=== PATIENT | female | born 1980 | race Two or more races ===

== ENCOUNTER → 2024-08-13 | Outpatient (CLI) | payer BC, MEDICAID, SELFPAY ==
--- NOTE | 2024-08-13 09:25 | XR_ITS ---
Examination: Lumbar spine, 5 views Technique: Lumbar spine AP, lateral, coned lateral lower lumbar spine, bilateral obliques 5 views Exam date and time: August 13, 2024 at 0928 hrs. Indications: Low back pain beginning 3 weeks ago Findings: Adequate alignment lumbar vertebral bodies on the lateral view Mild diffuse lumbar disc narrowing Mild lumbar spondylosis No spondylolisthesis Impression: Mild diffuse lumbar degenerative disc disease
--- NOTE | 2024-08-13 09:25 | XR_ITS ---
EXAMINATION: Cervical spine, 5 views Technique: Cervical spine AP, AP odontoid, lateral, bilateral obliques, 5 views Exam date and time: August 13, 2024 0928 hrs. Indications: Neck pain beginning one year ago Findings: Reversal normal cervical lordosis No cervical fracture Mild disc narrowing C5-C6 Intact odontoid No significant neural foraminal stenosis Impression: Early degenerative disc disease C5-C6
== END | disposition home or self-care (01) ==
PROVIDERS: PCP Nurse Practitioner Family; Referring Provider Nurse Practitioner Family; Visit Provider Nurse Practitioner Family
DX: M50.322 Other cervical disc degeneration at C5-C6 level (principal); M51.369 Other intervertebral disc degeneration, lumbar region without mention of lumbar back pain or lower extremity pain
CPT/HCPCS: 72050; 72110